=== PATIENT | female | born 1980 | race Two or more races ===

== ENCOUNTER 2024-09-07 15:25 | Emergency (ER) | payer MEDICAID ==
[~2024-09-07] VITALS: Ht 160 cm; Wt 68.7 kg
--- NOTE | 2024-09-07 15:49 | ED.PDOC ---
Back pain HPI HPI Comments HPI: Poor Historian. HPI: A 44-year-old female presents to the ED with a chief complaint of low back pain s/p fall onset 08/05/2024. Patient states she was drinking ETOH, fell down 4 steps, hit right lumbar sacral area as well as left side head. She states pain has been back pain and headache intermittent but her back pain worsen last night. Back pain gets worse when moving and improves when she remains still. Denies any cauda equina like symptoms. Denies any other focal neurological deficits. Patient is mainly for back pain. Only when asked about her fall and mechanism of injury and if she hit her head that she mentioned that she bumped the left side of her head. Initial Vital Signs: Temp : 98.3 F BP: 147/76 HR: 96 RR:16 SpO2: 100 % RA Past Medical History: Denies Past Surgical History: Denies Social History: Denies smoking, or drug use. Occasional ETOH. Medications: No medications. Allergies: NKDA REVIEW OF SYSTEMS: CONSTITUTIONAL: Denies acute: fever, diaphoresis, chills, generalized weakness. HEAD: Denies acute: photophobia Eyes: Denies acute: Double vision, vision loss, eye pain, eye discharge. EARS: Denies acute: tinnitus, hearing loss, ear discharge, ear pain, THROAT: Denies acute: sore throat, swelling, difficulty swallowing , pain with swallowing, change in voice. NECK: Denies acute: neck pain, neck swelling, stiff neck. HEART: Denies acute : chest pain, palpitations, LUNGS: Denies acute: SOB, wheezing, cough, hemoptysis ABDOMEN: Denies acute: abdominal pain, Nausea, Vomiting, diarrhea, melena , hematemesis, hematochezia SKIN: Denies acute: rash, redness, lesions, itchiness. EXTREMITIES: Denies acute: calf pain, numbness, tingling, weakness, denies pain in extremity. Neuro: Denies acute: focal neurological deficit, motor or sensory focal neurological deficit, tremors, seizure like activity, confusion, dizziness, change in mental status, loss of bowel or bladder function, cauda equina like symptoms. : Denies acute: dysuria, hematuria, flank pain, increase in urinary frequency. PSYCH: Denies acute: hallucination, suicidal ideation, homicidal ideation. FEMALE: Denies acute: abnormal vaginal bleeding, foul odor, unusual discharge. PHYSICAL EXAM: General: no acute distress, awake and alert. Head: normocephalic, atraumatic. Neck: supple, trachea is midline, no swelling. Throat: Normal phonation. Eyes:, no erythema, no purulent discharge, no proptosis, no icterus. Heart: regular rate, regular rhythm, no significant murmur appreciated. Lungs: no apparent respiratory distress, Able to speak in full sentences. No wheezing, no rhonchi, no crackles. No stridors Clear to auscultation bilaterally. Abdomen: non tender to palpation, non distended, soft, no guarding, no rebound, + bowel sounds. Neuro: Awake, Alert, oriented to name, self, situation, follows commands GCS=15. Speech is normal. Skin: no petechia, no purpura, no cyanosis, non-pale, not jaundice. Lower extremities: --no - Pitting edema no deformity, no focal swelling, no calf TTP. Makes eye contact. moves all four extremities. Palpation of the area of pain is specific and focal to the right medial lumbosacral joint. No erythema, no swelling, no swelling. Face: no apparent facial droop. Ambulating in the ED independently. No nuchal rigidity, Kernig's sign, Brudzinski's sign, no meningeal signs. Time Seen by MD: 15:28 Reviewed Notes: Nurses Notes, Medications, Allergies Allergies: Coded Allergies: NO KNOWN ALLERGIES (Unverified , 02/21/23) Home Meds Active Scripts Nitrofurantoin Monohydrate Mac (Macrobid) 100 Mg Cap, 100 MG PO BID for 7 Days, #14 CAP Prov:SHANTA PAN DO 09/07/24 Information Source: Patient Past Medical History PAST MEDICAL HISTORY: Anxiety Surgical History: Denies all surgeries GRAZING AIDE History: No Pertinent GRAZING AIDE History Family History Family History: Reviewed,noncontributory to illness Social History Smoker: Non-Smoker Alcohol: Denies ETOH Use Drugs: Denies Drug Use Was a procedure done? Was a procedure done?: No Back Pain Differential Dx Differential Diagnosis: Other (DDX included but not limited to Cauda Equina syndrome, lumbar radiculopathy, arthritis, disk herniation, sciatica, muscle strain, epidural abscess, transverse myelitis. Cord compression, spinal foraminal stenosis, spinal fractures, spondylosis, central canal stenosis, trauma, muscle sprain/strain, aneurysm/dissection, kidney stones, shingles, arthritis, Guillan Henderson, neoplasm.) X-Ray, Labs, Meds, VS Vital Signs Date Time Temp Pulse Resp B/P (MAP) Pulse Ox O2 Delivery O2 Flow Rate FiO2 09/07/24 18:06 73 18 100 Room Air 09/07/24 18:06 98.1 73 18 132/79 (96) 100 98.1 09/07/24 16:48 98.0 79 14 120/73 (89) 97 Lab Test 09/07/24 17:58 09/07/24 15:59 Range/Units Urine Color Colorless Yellow Urine Clarity Clear Clear Urine pH 5.5 5.0-9.0 Urine Specific Russell 1.009 1.001-1.035 Urine Protein Negative Negative Urine Ketones Negative Negative Urine Blood Negative Negative /uL Urine Nitrite Negative Negative Urine Bilirubin Negative Negative Urine Urobilinogen Normal Negative mg/dL Urine Leukocyte Esterase 1+ Negative /uL Urine RBC 1 0 - 4 /hpf Urine Microscopic WBC 2 0-5 /HPF Urine Squamous Epithelial Cells Mod <5 /hpf Urine Bacteria Few H None Seen /hpf Urine Glucose Normal Normal mg/dL Urine Test Negative Negative White Blood Count 4.9 4.4-10.8 10^3/uL Red Blood Count 4.18 4.0-5.20 10^6/uL Hemoglobin 13.5 12.2-16.2 g/dL Hematocrit 39.4 36.0-46.0 % Mean Corpuscular Volume 94.3 80.0-100.0 fL Mean Corpuscular Hemoglobin 32.2 H 28.0-32.0 pg Mean Corpuscular Hemoglobin Concent 34.2 32.0-36.0 g/dL Red Cell Distribution Width 12.5 11.8-14.3 % Platelet Count 306 140-450 10^3/uL Mean Platelet Volume 7.8 6.9-10.8 fL Neutrophils (%) (Auto) 57.8 37.0-80.0 % Lymphocytes (%) (Auto) 28.4 10.0-50.0 % Monocytes (%) (Auto) 9.7 0.0-12.0 % Eosinophils (%) (Auto) 3.4 0.0-7.0 % Basophils (%) (Auto) 0.7 0.0-2.0 % Neutrophils # (Auto) 2.8 1.6-8.6 10 ^3/uL Lymphocytes # (Auto) 1.4 0.4-5.4 10 ^3/uL Monocytes # (Auto) 0.5 0-1.3 10 ^3/uL Eosinophils # (Auto) 0.2 0-0.8 10 ^3/uL Basophils # (Auto) 0 0-0.2 10 ^3/uL Nucleated Red Blood Cells 0.1 % Sodium Level 140 136-145 mmol/L Potassium Level 4.3 3.5-5.1 mmol/L Chloride Level 104 98-107 mmol/L Carbon Dioxide Level 31 20-31 mmol/L Anion Gap 5 5-15 Blood Urea Nitrogen 11 9-23 mg/dL Creatinine 0.79 0.550-1.02 mg/dL Glomerular Filtration Rate Calc 95 >90 mL/min BUN/Creatinine Ratio 13.9 10.0-20.0 Serum Glucose 93 74-106 mg/dL Calcium Level 9.7 8.7-10.4 mg/dL Current Medications Medications (Trade) Dose Ordered Sig/Brandon Route Start Time Stop Time Status Last Admin Ketorolac Tromethamine (Toradol Injection) 30 mg ONCE ONCE IM 09/07/24 16:45 09/07/24 16:46 DC 09/07/24 18:12 Acetaminophen/ Hydrocodone Bitart ([place] 5/325MG Tab) 1 tab ONCE ONCE PO 09/07/24 16:45 09/07/24 16:46 DC 09/07/24 18:11 Dexamethasone Sodium Phosphate (Decadron Injection) 10 mg ONCE ONCE IM 09/07/24 18:15 09/07/24 18:16 DC 09/07/24 18:15 Time of 1ST Reevaluation: 16:00 Reevaluation 1ST: Unchanged Patient Education/Counseling: Diagnosis, Treatment Family Education/Counseling: Other Comments Patient presented with the above HPI.---low back pain---workup was initiated. patient was found with the above mentioned diagnosis. the following medications were ordered: please refer to order lists of meds and tests obtained by myself Dr. Pan. Patient ED course and VS have been stabilized. Patient has been reassessed in the ED and remained in a stable condition. Pertinent incidental findings were discussed with the patient and/or family. Patient/family voices understanding and is agreeable with plan. Patient has been observed in the ED adequate length of time to insure improvement/stability. Escalation of care considered: Consideration of escalation to observation or admission Patient was DISCHARGED home in a stable condition. All the reports of any imaging studies that were ordered by myself were reviewed by myself. Departure 1 Departure Time of Disposition: 16:38 Impression: Primary Impression: Musculoskeletal pain Additional Impressions: Low back pain UTI (urinary tract infection) Closed head injury Constipation Disposition: 01 HOME / SELF CARE / HOMELESS Condition: Stable Additional Instructions: Additional discharge instructions: You MUST follow-up with your primary care/family doctor in 1 to 2 days. If you are unable to see your primary care/family doctor, please return to our emergency room for re-assessment and re-evaluation in 1 to 2 days. Return to the emergency room here in our facility or to the nearest ER [facility] if your symptoms change or worsen. CONSULTATIONS: you MUST Follow-up for consultation as soon as possible with: -orthopedics in 1-2 days. Please call for appointment. You MUST call the consultants office yourself to make an appointment. You may need to arrange that through your insurance and/or your primary/family doctor. If you are unable to see the customer sales consultant in 1 to 2 days, you must return to our emergency room (or any other ER of your choice) for re-assessment and re- evaluation. Adequate fluid hydration. You are constipated. Increase fiber intake. 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 COMPARISON: None FINDINGS: VERTEBRAE: Grade 1 anterior spondylolisthesis of L5 over S1 with possible pars defect. This could be further evaluated with MRI. No acute fracture. SACRUM/COCCYX: Unremarkable as visualized. No acute fracture. DISC SPACES: No acute findings. No significant narrowing. SOFT TISSUES: Unremarkable. GASTROINTESTINAL TRACT: Fecal retention in the colon consistent with constipation. OTHER FINDINGS: . IMPRESSION: 1. Fecal retention in the colon consistent with constipation. 2. Grade 1 anterior spondylolisthesis of L5 over S1 with possible pars defect. This could be further evaluated with MRI. . ATED BY: YASHIRA LACEY MD DICTATED DATE/TIME: 09/07/241999 SIGNED BY: YASHIRA LACEY MD SIGNED DATE/TIME: 09/07/241999 e-Prescriptions Nitrofurantoin Monohydrate Mac (Macrobid) 100 Mg Cap 100 MG PO BID for 7 Days, #14 CAP Prov: SHANTA PAN DO 09/07/24 Discharged With: Self Critical Care Note Critical Care Time?: No I personally scribed for SHANTA PAN DO ([email or web address]) on 09/07/24 at 15:48. Electronically submitted by Alexandra Sanon ([email or web address]). I personally scribed for SHANTA PAN DO ([email or web address]) on 09/07/24 at 15:58. Electronically submitted by Alexandra Sanon ([email or web address]). I personally scribed for SHANTA PAN DO ([email or web address]) on 09/07/24 at 18:12. Electronically submitted by Alexandra Sanon ([email or web address]). SHANTA PAN DO Sep 07, 2024 15:48
[2024-09-07 16:18] LABS: Basophils # (auto) 0 10 ^3/uL (0-0.2); Basophils % (auto) 0.7 % (0.0-2.0); Eosinophils # (auto) 0.2 10 ^3/uL (0-0.8); Eosinophils % (auto) 3.4 % (0.0-7.0); Hematocrit 39.4 % (36.0-46.0); Hemoglobin 13.5 g/dL (12.2-16.2); Lymphocytes # (auto) 1.4 10 ^3/uL (0.4-5.4); Lymphocytes % (auto) 28.4 % (10.0-50.0); Mean Corpuscular Hemoglobin 32.2 pg (28.0-32.0); Mean Corpuscular Hgb Conc. 34.2 g/dL (32.0-36.0); Mean Corpuscular Volume 94.3 fL (80.0-100.0); Monocytes # (auto) 0.5 10 ^3/uL (0-1.3); Monocytes % (auto) 9.7 % (0.0-12.0); Neutrophils # (auto) 2.8 10 ^3/uL (1.6-8.6); Neutrophils % (auto) 57.8 % (37.0-80.0); Nucleated Red Blood Cells % 0.1 %; Platelet Count (auto) 306 10^3/uL (140-450); Red Blood Cells 4.18 10^6/uL (4.0-5.20); Red Cell Distribution Width 12.5 % (11.8-14.3); White Blood Cell 4.9 10^3/uL (4.4-10.8)
[2024-09-07 16:38] LABS: Chloride 104 mmol/L (98-107); Potassium 4.3 mmol/L (3.5-5.1); Sodium 140 mmol/L (136-145)
[2024-09-07 16:39] LABS: Anion Gap 5 (5-15); Calcium 9.7 mg/dL (8.7-10.4); Carbon Dioxide 31 mmol/L (20-31)
[2024-09-07 16:44] LABS: BUN/Creatinine Ratio 13.9 (10.0-20.0); Blood Urea Nitrogen 11 mg/dL (9-23); Glucose 93 mg/dL (74-106)
[2024-09-07] MEDS: DexAMETHasone SOD PHOS 10MG/1ML VIAL INJ IM ONE (18:06)
[2024-09-07] MEDS: DexAMETHasone SOD PHOS 4 MG/1ML SDV INJ IM ONE ×2 (18:10→18:15)
[2024-09-07] MEDS: HYDROcodone-ACET 5/325MG TAB PO ONE (18:11)
[2024-09-07] MEDS: KETOROLAC TROMETH 60MG/2ML VIAL IM ONE (18:12)
[2024-09-07 19:28] LABS: Urine Bacteria FEW /hpf (None Seen); Urine Blood Negative /uL (Negative); Urine Clarity Clear (Clear); Urine Color Colorless (Yellow); Urine Protein, UAD Negative (Negative); Urine Specific Gravity 1.009 (1.001-1.035); Urine Squamous Epithelial Cell MOD /hpf (<5); Urine Urobilinogen Normal (Negative); Urine WBC 2 /HPF (0-5); Urine pH 5.5 (5.0-9.0)
--- NOTE | 2024-09-07 20:02 | DVH ---
EXAM: XR Lumbosacral Spine, 2 or 3 Views CLINICAL INDICATION: fall, pain TECHNIQUE: Frontal and lateral views of the lumbar spine and sacrum. COMPARISON: None FINDINGS: VERTEBRAE: Grade 1 anterior spondylolisthesis of L5 over S1 with possible pars defect. This could b e further evaluated with MRI. No acute fracture. SACRUM/COCCYX: Unremarkable as visualized. No acute fracture. DISC SPACES: No acute findings. No significant narrowing. SOFT TISSUES: Unremarkable. GASTROINTESTINAL TRACT: Fecal retention in the colon consistent with constipation. OTHER FINDINGS: . IMPRESSION: 1. Fecal retention in the colon consistent with constipation. 2. Grade 1 anterior spondylolisthesis of L5 over S1 with possible pars defect. This could be further evaluated with MRI. .
[2024-09-07] MEDS ORDERED: NITR-87 PO (20:08)
--- NOTE | 2024-09-07 20:16 | DVH ---
CLINICAL HISTORY: low back pain/ fall TECHNIQUE: Helical imaging carried out from skull base to vertex without intravenous contrast. This e xam was performed according to our departmental dose optimization program. Up-to-date CT equipment an d radiation dose reduction techniques are utilized as appropriate. CTDIVol: 54.17 mGy DLP: 979.13 mGy-cm WID: COMPARISON: CT HEAD WITHOUT CONTRAST on DOS: 02/21/23 FINDINGS: Unchanged parenchymal calcification in the left parietal lobe which may be sequelae of remote neurocy sticercosis infection. The ventricles and subarachnoid spaces are normal in size and configuration. There is no midline gabriel ft or mass effect. The sweeney white matter interfaces are maintained. The basal cisterns are patent. Th ere is no evidence of acute intracranial hemorrhage or extra-axial fluid collection. The mastoid air cells and visualized paranasal sinuses are well-aerated. IMPRESSION: No acute intracranial abnormality.
[2024-09-07 21:10] VITALS: BP 118/80; PULSE 63; RESP 18; TEMP 98; O2SAT 99
== END 2024-09-07 21:22 | disposition home or self-care (01) ==
LOC: ER 15:25
DX: S09.90XA Unspecified injury of head, initial encounter (principal); M79.18 Myalgia, other site; M54.50 Low back pain, unspecified; N39.0 Urinary tract infection, site not specified; K59.00 Constipation, unspecified; F41.9 Anxiety disorder, unspecified; W10.9XXA Fall (on) (from) unspecified stairs and steps, initial encounter; Y93.89 Activity, other specified; Y92.89 Other specified places as the place of occurrence of the external cause; Y99.8 Other external cause status
CPT/HCPCS: 36415; 70450; 72100; 80048; 81001; 81025; 85025; 87086; 96372; 99285; J1885; J1100